=== PATIENT | male | born 1950 | race Two or more races ===

== ENCOUNTER 2020-07-04 12:41 | Emergency (ER) | payer OTHER, MEDICAID ==
[~2020-07-04] VITALS: Ht 177.8 cm; Wt 81.6 kg
[2020-07-04] MEDS ORDERED: OLANZAPINE 10 MG VIAL IM ONE (12:47)
[2020-07-04] MEDS: OLANZAPINE 10 MG VIAL IM ONE ×2 (12:47→13:20)
[2020-07-04 13:30] LABS: BASOPHILS # (AUTO) 0.1 /CMM (0.0-0.2); BASOPHILS % (AUTO) 0.8 % (0.0-2.0); EOSINOPHILS % (AUTO) 0.2 % (0.0-6.0); HEMATOCRIT 41 % (39-51); HEMOGLOBIN 13.9 g/dL (13.5-17.5); LYMPHOCYTES # (AUTO) 0.7 /CMM (0.8-4.8); LYMPHOCYTES % (AUTO) 4.5 % (20.0-44.0); MEAN CORPUSCULAR HGB CONC 34 g/dl (31.0-36.0); MEAN CORPUSCULAR VOLUME 92 fL (80-96); MONOCYTES % (AUTO) 6.6 % (2.0-12.0); NEUTROPHILS # (AUTO) 13.5 /CMM (1.8-8.9); NEUTROPHILS % (AUTO) 87.9 % (43.0-81.0); PLATELET COUNT (AUTO) 247 /CMM (150-450); RED BLOOD CELL COUNT(AUTO) 4.48 MIL/uL (4.5-6.0); WHITE BLOOD COUNT (AUTO) 15.3 K/uL (4.3-11.0)
--- NOTE | 2020-07-04 13:41 | NUR ---
BIBLIYAH ON 5150 HOLD FOR DANGER TO HIMSELF, TO ER BED 15. AAOX4. NOT IN RESP DISTRESS, BREATHING EVEN AND UNLABORED. AMBULATORY. BROUGHT IN D/T PT ATTEMPTED TO GET INTO AN OFF DUTY [employer]. PT VERBALIZED THAT HE HAS NO INTENTION OF HURTING OR STEALING BUT JUST WANT TO LOOK INSIDE THE HOUSE. PT IS REPORTED WITH OBSSESSION WITH DOOR KNOBS PER 5150 HOLD. PT DENIED ANY SUICIDAL NOR HOMICIDAL IDEATION. PT WAS VERY THIRSTY, PROVIDED WITH WATER. MD WAS AT THE BEDSIDE FOR EVAL. ORDERS RECEIVED, NOTED AND CARRIED OUT. LAB PHLEB WAS AT THE BEDSIDE FOR BLOOD DRAW.UNABLE TO PROVIDE URINE AT THIS TIME.
[2020-07-04 13:49] LABS: CARBON DIOXIDE 25 mmol/L (21-32); CHLORIDE 110 mmol/L (98-107); GLUCOSE 121 mg/dL (74-106); POTASSIUM 3.6 mmol/L (3.5-5.1); SODIUM SERUM 145 mmol/L (136-145); UREA NITROGEN, BLOOD 14 mg/dL (7-18)
[2020-07-04 14:02] LABS: ALANINE AMINOTRANSFERASE 31 U/L (12-78); ALBUMIN 3.6 g/dL (3.4-5.0); ALCOHOL, BLOOD < 3 mg/dL (0-0); ALKALINE PHOSPHATASE 79 U/L (46-116); ASPARTATE AMINOTRANSFERASE 24 U/L (15-37); BILIRUBIN,DIRECT 0.3 mg/dL (0.0-0.2); TOTAL PROTEIN, SERUM 6.8 g/dL (6.4-8.2)
[2020-07-04 14:03] LABS: ACETAMINOPHEN < 2 ug/ml (10-30)
--- NOTE | 2020-07-04 14:35 | NUR ---
RAPID COVID TEST (-)
--- NOTE | 2020-07-04 16:01 | NUR ---
[facility]ED [facility]. ASSIGNED TO DR. RAMIREZ. WILL CALL BACK WHEN AVAILABLE.
--- NOTE | 2020-07-04 16:39 | NUR ---
JUDE FROM [facility] UPDATED REGARDING CLINICALS
--- NOTE | 2020-07-04 16:49 | NUR ---
0570 hold faxed over to [facility]
[2020-07-04 17:27] LABS: BILIRUBIN,URINE NEGATIVE (NEGATIVE); BLOOD, URINE NEGATIVE Ery/uL (NEGATIVE); COLOR,URINE YELLOW (YELLOW); LEUKOCYTE ESTERASE ,URINE NEGATIVE (NEGATIVE); NITRITE, URINE NEGATIVE (NEGATIVE); PROTEIN,URINE NEGATIVE (NEGATIVE); UGLUCOSE NEGATIVE (NEGATIVE); UROBILINOGEN,URINE 0.2 EU/dL (0.2)
--- NOTE | 2020-07-04 17:35 | NUR ---
JUDE CALLED BACK AND CLINICALS WERE NOT RECIEVED. ADVISED HER THAT WE ARE WAITING ON TOX AND URINE TO COME BACK BEFORE FAXING. JUDE FAX: [phone]. PHONE NUMBER: [phone].
--- NOTE | 2020-07-04 18:25 | NUR ---
Damaso hoang in [facility] - 07/04/20 at 1940 by VINCENT CALLED [facility] FOR PSYCH EVAL.
--- NOTE | 2020-07-04 18:30 | NUR ---
pt was provided with a meal.
[2020-07-04 18:33] LABS: BACTERIA,URINE None seen /HPF (None Seen); MUCUS,URINE Few /LPF (None Seen); RBC,URINE 0-2 /HPF (0-2); SQUAMOUS EPITHELIAL CELL,UR 0-2 /HPF (None Seen); WBC,URINE 0-2 /HPF (0-3)
--- NOTE | 2020-07-04 20:41 | NUR ---
SPOKE TO LUPE FROM [facility] TO F/U REGARDING TRANSFER, NO BED AVAILABLE AT [facility].
--- NOTE | 2020-07-04 23:56 | NUR ---
pt asleep, no acute distress noted, resp even and unlabored. 1:1 sitter at bedside for pt safety. call light within reach. will continue to monitor pt closely.
--- NOTE | 2020-07-05 01:42 | NUR ---
PT AMBULATED TO THE RESTROOM, VSS.
--- NOTE | 2020-07-05 02:33 | NUR ---
SPOKE TO KAMALA FROM [facility] TO F/U REGARDING TRANSFER, NO BED AVAILABLE AT [facility].
--- NOTE | 2020-07-05 06:21 | NUR ---
pt asleep, no acute distress noted, resp even and unlabored. 1:1 sitter at bedside for pt safety. call light within reach.
--- NOTE | 2020-07-05 06:38 | NUR ---
SPOKE TO CAIN FROM [facility] TO F/U REGARDING TRANSFER, NO BED AVAILABLE AT [facility].
--- NOTE | 2020-07-05 07:36 | NUR ---
PATIENT IN BED ASLEEP, EASILY AROUSABLE BY VOICE. HOOKED TO MONITOR. VSS. SITTER AT BEDSIDE FOR SAFETY.
[2020-07-05 10:10] LABS: BASOPHILS # (AUTO) 0.1 /CMM (0.0-0.2); BASOPHILS % (AUTO) 0.9 % (0.0-2.0); EOSINOPHILS % (AUTO) 5.6 % (0.0-6.0); HEMATOCRIT 41 % (39-51); HEMOGLOBIN 13.7 g/dL (13.5-17.5); LYMPHOCYTES # (AUTO) 1.2 /CMM (0.8-4.8); LYMPHOCYTES % (AUTO) 15.9 % (20.0-44.0); MEAN CORPUSCULAR HGB CONC 33 g/dl (31.0-36.0); MEAN CORPUSCULAR VOLUME 92 fL (80-96); MONOCYTES # (AUTO) 0.9 /CMM (0.1-1.30); MONOCYTES % (AUTO) 11.4 % (2.0-12.0); NEUTROPHILS # (AUTO) 5.2 /CMM (1.8-8.9); NEUTROPHILS % (AUTO) 66.2 % (43.0-81.0); PLATELET COUNT (AUTO) 222 /CMM (150-450); RED BLOOD CELL COUNT(AUTO) 4.43 MIL/uL (4.5-6.0); WHITE BLOOD COUNT (AUTO) 7.8 K/uL (4.3-11.0)
[2020-07-05 10:27] LABS: MAGNESIUM 2.1 mg/dL (1.8-2.4); PHOSPHORUS 3.4 mg/dL (2.5-4.9)
[2020-07-05 10:44] LABS: THYROID STIMULATING HORMONE 0.887 uIU/mL (0.358-3.74)
--- NOTE | 2020-07-05 10:57 | NUR ---
CALLED [facility]. SPOKE TO WILLIAM AND STATES THAT THEY ARE STILL LOOKING FOR PLACEMENT FOR GERIATRIC PSYCH. WILL CALL BACK WHEN ANY INFORMATION IS FOUND.
--- NOTE | 2020-07-05 12:10 | NUR ---
TRANSFER INFO FROM [place] TO [facility] ACCEPTED BY DR. CHITO ORTA # FOR REPORT [phone]. [employer] 1 HOUR. GIVE ORIGINAL HOLD. GO TO [facility].
--- NOTE | 2020-07-05 13:03 | NUR ---
report given to HALLIE Perez at the [facility]
--- NOTE | 2020-07-05 13:20 | NUR ---
[id number] AT PT BEDSIDE FOR TRANSPORT TO [facility]. REPORT IS GIVEN TO AMBULANCE STAFF. NAD NOTED. PT IS INSTABLE CONDITION FOR TRANSPORT. PT AMBULATORY ON STEADY GAIT.
[2020-07-05 13:37] VITALS: BP 117/65
== END 2020-07-05 13:21 ==
LOC: ER 12:49 → UNDOADMIN 15:27 → GPS 15:27 → ER 07-05 13:21
DX: F23 Brief psychotic disorder (principal); D72.829 Elevated white blood cell count, unspecified; Z20.828 Contact with and (suspected) exposure to other viral communicable diseases; R73.9 Hyperglycemia, unspecified
CPT/HCPCS: 36415 ×2; 71045; 80048; 80061; 80076; 80299; 80307; 80320; 81001; 82607; 83036; 83735; 84100; 84443; 85025 ×2; 87426; 96372; 96374; 99285; C9803; J3490; G0480